=== PATIENT | female | born 1990 | race Caucasian/White ===

== ENCOUNTER 2017-06-27 06:36 | Emergency (ER) | payer SELFPAY ==
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
[2017-06-27 07:31] LABS: % IMMATURE GRANULYOCYTES 0.3 % (0.0-1.1); ABSOLUTE IMMATURE GRANULOCYTES 0.02 10^3/uL (0.00-0.10); ADD DIFF? NO; ADD MORPH? NO; ADD SCAN? NO; ATYPICAL LYMPHOCYTE FLAG 20 (0-99); FRAGMENT RBC FLAG 0 (0-99); HEMATOCRIT 43.1 % (38.0-47.0); HEMOGLOBIN 14.8 g/dL (12.6-16.3); LEFT SHIFT FLG 0 (0-99); LIPEMIA HEMOLYSIS FLAG 90 (0-99); MEAN CELL HEMOGLOBIN 33.6 pg (27.9-34.1); MEAN CELL HEMOGLOBIN CONCENTR. 34.3 g/dL (32.4-36.7); MEAN CELL VOLUME 97.7 fL (81.5-99.8); MEAN PLATELET VOLUME 9.1 fL (8.7-11.7); PLATELET CLUMPS FLAG 10 (0-99); PLATELET COUNT 250 10^3/uL (150-400); RED BLOOD CELL COUNT 4.41 10^6/uL (4.18-5.33); RED CELL DISTRIBUTION WIDTH 13.6 % (11.5-15.2)
[2017-06-27 07:38] LABS: ANION GAP 20 mEq/L (8-16); CARBON DIOXIDE 23 mEq/l (22-31); CHLORIDE 109 mEq/L (97-110); CREATININE 0.6 mg/dL (0.6-1.0); GLOMERULAR FILTRATION RATE > 60; GLUCOSE 97 mg/dL (70-100); POTASSIUM 4.3 mEq/L (3.5-5.2); SODIUM 152 mEq/L (134-144)
[2017-06-27 07:54] LABS: ETHANOL SERUM 358 mg/dL (0-10)
[2017-06-27 08:59] VITALS: RESP 16; TEMP 98.4
[2017-06-27] MEDS ORDERED: IBUPROFEN 600 MG TAB PO ONE (21:32)
[2017-06-27 23:07] VITALS: O2SAT 95
[2017-06-28 01:53] VITALS: BP 127/89; PULSE 82
== END 2017-06-28 02:09 | disposition home or self-care (01) ==
PROC: 0HQEXZZ Repair Left Lower Arm Skin, External Approach (ICD-10-PCS; principal; 2017-06-27)
DX: S61.512A Laceration without foreign body of left wrist, initial encounter (principal); F32.9 Major depressive disorder, single episode, unspecified; F10.920 Alcohol use, unspecified with intoxication, uncomplicated; J45.909 Unspecified asthma, uncomplicated; F17.200 Nicotine dependence, unspecified, uncomplicated; X78.1XXA Intentional self-harm by knife, initial encounter
CPT/HCPCS: 80305; G0480

== ENCOUNTER 2017-07-09 11:22 | Emergency (ER) | payer SELFPAY ==
[~2017-07-09 11:22] MED LIST: AMOXICILLIN/CLAVULANATE POT 875/125 MG TAB PO SCH
[2017-07-09 11:26] VITALS: RESP 18; O2SAT 96
--- NOTE | 2017-07-09 12:23 | EDPHY ---
General - History Smoking Status: Current some day smoker Narrative: CHIEF COMPLAINT: Suture removal, possibly infected HISTORY OF PRESENT ILLNESS: Patient presents with complaints of possibly infected laceration. She was here on the 27 of June for self-inflicted wound to the left wrist, volar. She was evaluated extensively and ultimately discharged home with suture repair. She has adhere to wound care as instructed. She was not placed on antibiotics. She says over the past 1-3 days it has become red around the site with some drainage from the suture site. During her suture removal I was asked liquid the wound by the triage nurse. I asked her to be checked in due to infection of the site. She has some complaints of tingling past the site. She has moderate to severe pain. No difficulty moving the wrist or hand. No numbness. No fever. No systemic complaints of illness. No other associated complaints or modifying factors. She is right-hand dominant TIME OF INJURY: June 27, 2017 TETANUS STATUS: Up-to-date MEDICAL/SURGICAL/SOCIAL HISTORY: No medical diagnoses. Nonsmoker. REVIEW OF SYSTEMS: Ten systems reviewed and are negative unless otherwise noted in the HPI EXAMINATION General Appearance: Alert, no distress Head: normocephalic, atraumatic Cardiovascular: Symmetric radial pulses 2+. Brisk cap refill Neurological: A&O, sensory symmetric, interossei strength symmetric Skin: Warm and dry, no rash. There are multiple superficial lacerations to the left volar forearm in various stages of healing. There is a laceration to the distal left forearm, volar measuring 3 cm in length. There is some induration of the wound borders with erythema and mild purulence in the base of the wound and at the suture sites. There is minimal surrounding erythema. There is no fluctuance or crepitus. She is neurovascular intact distal to this. Extremities: Minimal tenderness at the laceration site. Range of motion is fully intact with symmetric hand and finger range of motion. DIFFERENTIAL DIAGNOSES: Including but not limited to infected laceration, laceration with complication, cellulitis, abscess MDM: 12:13 p.m. Suspected infected left forearm laceration without disseminated infection or surrounding cellulitis. I do not appreciate any abscess. There is mild purulence at the site of the suture line. I will anesthetize, irrigate re- evaluate. She is neuro intact distally. Vital signs were well within normal limits with no evidence of systemic illness. 1:00 p.m. Wound has been irrigated I re-evaluated. It is much house cleaner supervisor in appearance. The purulence has been debrided. Bacitracin be applied. Breathe will dressing applied. Wound care discussed. She has also been evaluated by community case manager Luz. She has arranged for the patient to be seen at [facility] [place] on Tuesday for wound check. The patient will do so but has instructions to return here should she develop worsening signs of infection, worsening pain, fever or other complications. She is comfortable this plan. She is discharged home stable condition, neurovascular intact. Medications have been provided by the medication assistance program. Procedure: Local anesthetic Consent: Verbal Indication: Infected laceration site on the left forearm Description: Area was prepped with ChloraPrep. 5 mL as of 1% lidocaine with epinephrine infused at the site of the laceration. Tolerated well. No complication. Neuro intact distally postprocedure. No blood loss SUPERVISION: Patient was independently examined, but I discussed the case with my secondary supervising physician Dr. Roman ED Precautions: Worsening pain. Erythema, edema, cyanosis, pallor, paresthesia or anesthesia. (Oneil Parmar) The patient was evaluated and managed by the physician construction administrative assistant. I have reviewed this chart and I agree with the findings and plan of care as documented , as indicated by my signature. I am the secondary supervising physician. ( Delma Roman) - Objective Vital Signs: Initial Vital Signs Temperature (C) 36.4 C 07/09/17 11:23 Heart Rate 66 07/09/17 11:23 Respiratory Rate 18 07/09/17 11:23 Blood Pressure 106/67 07/09/17 11:23 O2 Sat (%) 96 07/09/17 11:23 O2 Delivery Mode Room Air Allergies/Adverse Reactions: No Known Allergies Allergy (Verified 07/09/17 11:23) Home Medications: Medication Instructions Recorded Amoxicillin/Clavulanate Pot 875 mg PO BID #20 tab 07/09/17 [Augmentin 875 MG TAB (*)] Departure - Departure Disposition: Home, Routine, Self-Care Clinical Impression: Infected laceration Laceration of wrist with complication Qualifiers: Encounter type: initial encounter Laterality: left Qualified Code(s): S61.512A - Laceration without foreign body of left wrist, initial encounter Condition: Good Instructions: Amoxicillin/Clavulanate Potassium (By mouth), Laceration (ED), Cellulitis (ED), Acute Wounds (ED) Additional Instructions: 1. Medications as prescribed to completion 2. [facility] or here [facility] Tuesday for repeat wound evaluation 3. Return to ED for worsening pain, redness, purulence or any fever Referrals: [facility],. [Clinic] - As per Instructions Prescriptions: Amoxicillin/Clavulanate Pot [Augmentin 875 MG TAB (*)] 875 mg PO BID #20 tab
[2017-07-09 13:18] VITALS: BP 116/73; PULSE 73; TEMP 98.1
--- NOTE | 2017-07-09 18:47 | ASDISCHSUM ---
Discharge Information Plan Status:Home with No Needs Medically Cleared to Leave: Discharge Date:07/09/2017 01:18 PM CM D/C Disposition:Home, Routine, Self-Care ADT D/C Disposition:Home, Routine, Self-Care Projected Discharge Date:07/09/2017 01:18 PM Transportation at D/C:Self Discharge Delay Reason: Follow-Up Date:07/09/2017 01:18 PM Discharge Slot: Final Diagnosis: Placement Information Patient Contact Information Contact Name:WILLIAM Relationship: Address: Home Phone: Work Phone: City: Alternate Phone: State/[place] Code: Email: Financial Information Financial Class:Self-Pay Primary Plan Desc:SELF PAY Primary Plan Number: Secondary Plan Desc: Secondary Plan Number: Assessment Information Intervention Information Intervention Type:Medication Date of Service:07/09/2017 12:55 PM Patient Type:Emergency Room Staff Member:MARSHA Corona Sharon Hours:0.25 Discipline:Cytogenetic Technologist Severity: Comment:Antibiotics provided through our Medic ation Assistance Program. Patient states her Medicaid application is pending. Intervention Type:Health Clinic Date of Service:07/09/2017 12:55 PM Patient Type:Emergency Room Staff Member:MARSHA Corona Sharon Hours:0.25 Discipline:Cytogenetic Technologist Severity: Comment:Will follow-up with patient on Tuesday07/12/16 and schedule her a follow-up appointment a t [facility].
--- NOTE | 2017-07-12 18:58 | ASMTCMCOM ---
CM Note CM Note Notes: Patient needing PCP. Followed up with patient today, able to get her a new patient appointment today 07/12/17 at [facility] at 3pm. Spoke with patient and she is able to make this appointment. Patient states she believes her laceration is healing well without any signs of infection. CM available for further assistance. Date Signed: 07/12/2017 06:58 PM Electronically Signed By:Luz Corona RN
== END 2017-07-09 13:18 | disposition home or self-care (01) ==
PROC: 3E0T3BZ Introduction of Anesthetic Agent into Peripheral Nerves and Plexi, Percutaneous Approach (ICD-10-PCS; principal; 2017-07-09)
DX: T81.4XXA Infection following a procedure, initial encounter (principal); F17.200 Nicotine dependence, unspecified, uncomplicated; Y82.8 Other medical devices associated with adverse incidents

== ENCOUNTER 2017-07-14 23:01 | Emergency (ER) | payer MEDICAID ==
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
[2017-07-14] MEDS ORDERED: LET GEL TOPICAL 1 EA SYR TP ONE (23:20)
[2017-07-14] MEDS ORDERED: CEPHALEXIN 500 MG CAP PO ONE (23:20)
[2017-07-14] MEDS ORDERED: LORazepam 1 MG TAB PO ONE (23:28)
[2017-07-14] MEDS ORDERED: LORazepam 1 MG TAB ONE (23:29)
[2017-07-14 23:31] LABS: PLATELET COUNT 296 10^3/uL (150-400)
[2017-07-14] MEDS ORDERED: TDAP ADULT 0.5 ML INJ (BOOSTRIX) IM ONE (23:32)
[2017-07-15 11:30] VITALS: TEMP 98.1
[2017-07-15 14:18] VITALS: BP 119/69; PULSE 77; RESP 16; O2SAT 97
== END 2017-07-15 14:16 | disposition home or self-care (01) ==
LOC: EDBD → EDUNIT#
PROC: 0HQ1XZZ Repair Face Skin, External Approach (ICD-10-PCS; principal; 2017-07-14)
PROC: 0HQEXZZ Repair Left Lower Arm Skin, External Approach (ICD-10-PCS; 2017-07-14)
DX: S16.2XXA Laceration of muscle, fascia and tendon at neck level, initial encounter (principal); S51.812A Laceration without foreign body of left forearm, initial encounter; F10.920 Alcohol use, unspecified with intoxication, uncomplicated; F17.200 Nicotine dependence, unspecified, uncomplicated; J45.909 Unspecified asthma, uncomplicated; S80.211A Abrasion, right knee, initial encounter; S80.212A Abrasion, left knee, initial encounter; S01.81XA Laceration without foreign body of other part of head, initial encounter; Z23 Encounter for immunization; X78.1XXA Intentional self-harm by knife, initial encounter; Y92.002 Bathroom of unspecified non-institutional (private) residence as the place of occurrence of the external cause; Y93.89 Activity, other specified
CPT/HCPCS: 80305; G0480